=== PATIENT | female | born 1990 | race Caucasian/White ===

== ENCOUNTER 2023-11-25 09:54 | Outpatient (CLI) | payer SELFPAY ==
--- NOTE | ~2023-11-25 | US_ITS ---
EXAMINATION: US thyroid DATE: 11/25/2023 10:11 INDICATION: Hyperthyroidism. TECHNIQUE: Multiple ultrasound images of the thyroid were obtained. COMPARISON: None. FINDINGS: The right thyroid lobe measures 5.5 x 2.0 x 2.1 cm. The left thyroid lobe measures 5.7 x 1.8 x 2.1 c m. The thyroid demonstrates coarsened echotexture and increased vascularity. No discrete nodule. IMPRESSION: 1. Hypervascular thyroid, consistent with Graves disease. Reviewed, dictated and finalized at location A.
== END 2023-11-25 09:55 ==
LOC: MICIMG 09:56
PROVIDERS: PCP Registered Nurse; Visit Provider Registered Nurse
DX: E05.90 Thyrotoxicosis, unspecified without thyrotoxic crisis or storm (principal)
CPT/HCPCS: 76536